=== PATIENT | female | born 1990 | race Caucasian/White ===

== ENCOUNTER 2016-10-01 18:53 | Emergency (ER) | payer OTHER ==
[2016-10-01 19:18] VITALS: BP 123/71; PULSE 92; TEMP 97.9; BMI 33.5
--- NOTE | 2016-10-01 20:37 | PDOC ---
History of Present Illness - General History Source: Patient Exam Limitations: No Limitations - History of Present Illness Initial Comments: 10/01/16 21:22 The patient is a 26 year old female, with a significant past medical history of asthma, who presents to the emergency department complaining of abdominal pain for 6 days. The patient reports the pain is localized in the RLQ and left to her umbilicus. She states her pain is exacerbated after eating, and does not report any alleviating factors. The patient states she presented to her PCP, Dr. Jauregui, earlier today, who reports he found a cystic mass in the right ovary. She denies any history of ruptured cysts. She reports hematuria during her urine test at her PCP, but denies dysuria, frequency, or urgency. She states she is sexually active and using condoms for contraception. Her last menstrual period ended 3 days ago. She reports a Tmax: of 99.8F earlier today at her PCPs office. She denies any nausea, vomiting, diarrhea, or constipation. She denies any chills, cough, headache, or dizziness. She reports episodes of asthma exacerbation every few days. Allergies: None reported. Past Surgical History: None reported. Social History: Non-smoker. Denies alcohol or drug use. PCP: Dr. Jauregui <Rachel Huddleston - Last Filed: 10/02/16 00:24> <Uzma Castaneda - Last Filed: 10/02/16 00:50> - General Chief Complaint: Pain Stated Complaint: ABDOMINAL PAIN Time Seen by Provider: 10/01/16 20:01 Past History <Rachel Huddleston - Last Filed: 10/02/16 00:24> - Past Medical History Asthma: Yes - Psycho/Social/Smoking Cessation Hx Suicidal Ideation: No Smoking History: Current every day smoker Number of Cigarettes Smoked Daily: 10 Information on smoking cessation initiated: No Hx Alcohol Use: No Drug/Substance Use Hx: No <Uzma Castaneda - Last Filed: 10/02/16 00:50> - Past Medical History Allergies/Adverse Reactions: Allergies Allergy/AdvReac Type Severity Reaction Status Date / Time No Known Allergies Allergy Verified 10/01/16 19:14 Home Medications: Ambulatory Orders Albuterol 0.083% Nebulizer Brigid [Ventolin 0.083% Nebulizer Soln -] 1 neb NEB Q6H PRN 10/01/16 Albuterol Sulfate Inhaler - [Ventolin Hfa Inhaler -] 2 inh PO Q4H 10/01/16 Review of Systems - Review of Systems Able to Perform ROS?: Yes Comments:: 10/01/16 21:23 CONSTITUTIONAL: Present: +fever Absent: no chills, no fatigue EYES: Absent: visual changes ENT: Absent: ear pain, no sore throat CARDIOVASCULAR: Absent: chest pain, no palpitations RESPIRATORY: Absent: cough, no SOB GI: Present: +abdominal pain, +cystic mass in right ovary Absent: no nausea, no vomiting, no constipation, no diarrhea GENITOURINARY: Present: +hematuria Absent: dysuria, no frequency, no urgency MUSKULOSKELETAL: Absent: back pain, no arthralgia, no myalgia SKIN: Absent: rash NEURO: Absent: headache <Rachel Huddleston - Last Filed: 10/02/16 00:24> *Physical Exam - Vital Signs Last Vital Signs Temp Pulse Resp BP Pulse Ox 97.9 F 92 H 14 123/71 96 10/01/16 19:15 10/01/16 19:15 10/01/16 19:15 10/01/16 19:15 10/01/16 19:15 - Physical Exam Comments: 10/01/16 21:23 GENERAL: Well-appearing, well-nourished. No apparent distress. HEENT: Normocephalic, atraumatic. PERRL, EOM intact. CARDIOVASCULAR: Normal S1, S2. Regular rate and rhythm. PULMONARY: Clear to auscultation bilaterally. ABDOMEN: Soft, non-distended, non-tender. EXTREMITIES: Normal ROM in all four extremities. No gross deformities. SKIN: Warm, dry. No rash NEUROLOGICAL: No focal neurological deficits. <Rachel Huddleston - Last Filed: 10/02/16 00:24> - Vital Signs Last Vital Signs Temp Pulse Resp BP Pulse Ox 97.9 F 92 H 14 123/71 96 10/01/16 19:15 10/01/16 19:15 10/01/16 19:15 10/01/16 19:15 10/01/16 19:15 <Uzma Castaneda - Last Filed: 10/02/16 00:50> ED Treatment Course - LABORATORY CBC & Chemistry Diagram: 10/01/16 21:36 10/01/16 21:36 - RADIOLOGY Radiograph Interpretation: 10/02/16 00:20 EXAM: Abdomen and pelvis CT INTERPRETED: Dr. Green REVIEWED BY: Dr. Castaneda IMPRESSION:No inflammatory process identified in the abdomen or pelvis. No abdominal mass, adenopathy or collection seen. <Rachel Huddleston - Last Filed: 10/02/16 00:24> - LABORATORY CBC & Chemistry Diagram: 10/01/16 21:36 10/01/16 21:36 <Uzma Castaneda - Last Filed: 10/02/16 00:50> Medical Decision Making - Medical Decision Making 10/02/16 00:47 26-year-old female presented with lower abdominal pain. She was afebrile Negative test CBC shows slight leukocytosis of 13 Chemistries are unremarkable CAT scan was negative for any acute abdominal pathology. She had a normal appendix. No l. No suspicious lymphadenopathy, no collections, no bowel obstruction <Uzma Castaneda - Last Filed: 10/02/16 00:50> *DC/Admit/Observation/Transfer - Attestations Scribe Attestion: 10/01/16 21:24 Documentation prepared by Rachel Huddleston, acting as biomedical engineering technologist for Uzma Castaneda MD. <Rachel Huddleston - Last Filed: 10/02/16 00:24> <Uzma Castaneda - Last Filed: 10/02/16 00:50> Diagnosis at time of Disposition: Abdominal pain Qualifiers: Abdominal location: lower abdomen, unspecified Qualified Code(s): R10.30 - Lower abdominal pain, unspecified - Discharge Dispostion Disposition: HOME Condition at time of disposition: Stable - Referrals Referrals: Maxim Jauregui MD [Primary Care Provider] - - Patient Instructions Printed Discharge Instructions: DI for Abdominal Pain-Adult Additional Instructions: PLEASE FOLLOW UP WITH YOUR PHYSICIAN FOR ANY FURTHER EVALUATION
[2016-10-01 21:50] LABS: BASOPHIL 1.2 % (0-2.0); EOSINOPHIL 2.5 % (0-4.5); MCH 29.5 pg (25.7-33.7); MCHC 33.7 g/dl (32.0-36.0); MEAN CELL VOLUME 87.6 fl (80-96); MEAN PLT VOLUME 8.9 fl (7.5-11.1); NEUTROPHILS 56.4 % (42.8-82.8); PLATELET COUNT 341 K/MM3 (134-434); RDW 13.4 % (11.6-15.6); WHITE BLOOD COUNT 13.6 K/mm3 (4.0-10.0)
[2016-10-01 21:55] LABS: URINE APPEARANCE CLOUDY; URINE BILIRUBIN NEGATIVE (NEGATIVE); URINE COLOR YELLOW; URINE GLUCOSE (UA) NEGATIVE (NEGATIVE); URINE KETONE TRACE (NEGATIVE); URINE NITRITE NEGATIVE (NEGATIVE); URINE UROBILINOGEN 4.0 E.U/dl E.U./dl (0.2-1.0)
[2016-10-01 21:56] LABS: URINE BLOOD 1+ (NEGATIVE); URINE LEUK ESTERASE 1+ (NEGATIVE); URINE PROTEIN 1+ (NEGATIVE)
[2016-10-01 21:59] LABS: URINE BACTERIA RARE /hpf (NONE SEEN); URINE MUCUS MANY; URINE RBC 13 /hpf (0-3); URINE WBC 25 /hpf (3-5)
[2016-10-01 22:20] LABS: ALBUMIN 4.3 g/dl (3.4-5.0); ANION GAP 6 (8-16); CALCIUM 9.2 mg/dL (8.5-10.1); CO2 28 mmol/L (21-32); GLUCOSE,RANDOM 96 mg/dL (74-106)
[2016-10-01 22:24] LABS: ALK PHOS 107 U/L (45-117); BILIRUBIN,TOTAL 0.2 mg/dL (0.2-1.0); CREATININE 0.6 mg/dL (0.55-1.02); SGOT/AST 12 U/L (15-37); SGPT/ALT 25 U/L (12-78); TOT PROT 7.5 g/dl (6.4-8.2)
[2016-10-01] MEDS ORDERED: SODIUM CHLORIDE 1,000 ML IV STA (23:00)
== END 2016-10-02 01:02 | disposition home or self-care (01) ==
LOC: JER 18:53
PROC: 3E0337Z Introduction of Electrolytic and Water Balance Substance into Peripheral Vein, Percutaneous Approach (ICD-10-PCS; principal; 2016-10-01)
DX: R10.30 Lower abdominal pain, unspecified (principal); J45.909 Unspecified asthma, uncomplicated; F17.210 Nicotine dependence, cigarettes, uncomplicated
CPT/HCPCS: 36415; 74177-TC; 76830-TC; 80053; 81003; 81015; 84703; 85025; 99283-25